=== PATIENT | female | born 1960 | race Caucasian/White ===

== ENCOUNTER 2021-04-02 14:59 | Emergency (ER) | payer BC ==
[2021-04-02 15:54] LABS: CHLORIDE,CL 103 mmol/L (98-107); SODIUM,NA 141 mmol/L (136-145)
[2021-04-02 16:27] VITALS: BP 132/78; PULSE 66
--- NOTE | 2021-04-02 18:58 | EDM.PDOC ---
ED HPI GENERAL MEDICAL PROBLEM - General Chief Complaint: General Stated Complaint: Anxiety Time Seen by Provider: 04/02/21 15:15 Source of Information: Reports: Patient History Limitations: Reports: No Limitations - History of Present Illness INITIAL COMMENTS - FREE TEXT/NARRATIVE: Pt. presents to ER with complaints of "panic attack". Pt. states that she has been under a great amount of stress recently, and states that she was told that she needs to provide a project for work on a short time schedule. Pt. states that after she was told, she had an episode of chest pain, lightheadedness and shortness of breath. Symptoms resolved on their own. Pt. denies any fever or chills. No history of CAD in the past. She has a history of diabetes, HTN, and hyperlipidemia. On exam in ER, pt. was symptom free, other than feeling anxious secondary to work stress. Onset: Today Onset Date: 04/02/21 Location: Reports: Chest, Generalized - Related Data Allergies Allergy/AdvReac Type Severity Reaction Status Date / Time Sulfa (Sulfonamide Allergy Hives Verified 04/02/21 15:01 Antibiotics) Home Meds: Home Meds Clopidogrel [Plavix] 75 mg PO DAILY 06/20/14 [History] Escitalopram Oxalate [Lexapro] 20 mg PO DAILY 06/20/14 [History] Estrogens, Conjugated [Premarin] 0.3 mg PO DAILY 06/20/14 [History] Levothyroxine Sodium [Synthroid] 100 mcg PO DAILY 06/20/14 [History] hydroCHLOROthiazide [Hydrochlorothiazide] 25 mg PO Q2D 06/20/14 [History] Naproxen Sodium [Aleve] 2 tab PO Q12H PRN 11/03/16 [History] Past Medical History HEENT History: Reports: Allergic Rhinitis, Impaired Vision, Other (See Below) Other HEENT History: 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 PACs. 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 Full term without complications during pregnancies or deliveries. Fibrocystic breast disease. Musculoskeletal History: Reports: Fracture, Osteoarthritis, Other (See Below) Other Musculoskeletal History: Left medial malleolar fracture on 09/17/15 Neurological History: Reports: Headaches, Chronic Psychiatric History: Reports: Anxiety, Depression Endocrine/Metabolic History: Reports: Hypokalemia, Hypomagnesemia, Hypothy roidism, Obesity/BMI 30+ Hematologic History: Reports: Anemia, Blood Transfusion(s), Other (See Below) Other Hematologic History: Blood transfusions in May 2003 secondary to hemorrhagic shock from dysfunctional uterine bleeding Dermatologic History: Reports: Chronic Cellulitis, Other (See Below) Other Dermatologic History: chronic recurrent cellulitis and carbuncle is with history of MRSA of the right breast as below - Infectious Disease History Infectious Disease History: Reports: Chicken Pox, MRSA - Past Surgical History HEENT Surgical History: Reports: Adenoidectomy, Tonsillectomy, Other (See Below) Other HEENT Surgeries/Procedures: Tonsillectomy and adenoidectomy at age 7. GI Surgical History: Reports: Colonoscopy, Other (See Below) Other GI Surgeries/Procedures: Colonoscopy on 06/12/2014. Female Surgical History: Reports: D&C, Hysterectomy, Salpingo-Oophorectomy, Other (See Below) Other Female Surgeries/Procedures: Complete hysterectomy on 05/25/2003 secondary to dysfunctional uterine bleeding. D&C on 05/18/2003 as work-up for her hypermenorrhea. Musculoskeletal Surgical History: Reports: ORIF, Other (See Below) Other Musculoskeletal Surgeries/Procedures:: ORIF of left ankle fracture in 2017. - Past Imaging History Past Imaging History: Reports: ISHA Screen (08/28/2015.), Cardiac Echo (Last on 02/05/2016 with previous evaluation on 08/28/2014 with both evaluations indicating an ejection fraction of 60-65%.), CAT Scan (Brain on 04/19/2014, 09/08/2008, and 01/06/2008. Left lower leg on 10/01/2015. Chest 11/18/2010. Abdomen and pelvis on 05/09/2003.), DEXA Scan, Holter Monitor (05/18/2019.), Mammogram (Last on 09/14/2020.), MRA (Neck on 01/10/2008), MRI (Left lower leg 09/17/2015. Left ankle 02/05/2011. Brain 01/10/2008.), Ultrasound (Left breast ultrasound on 12/15/2019 and 05/19/2019. Thyroid on 06/26/2009.), Venous Doppler (Left leg on 05/19/2008.) Social & Family History - Family History Cardiac: Reports: CAD, Heart Murmur, [place], Other (See Below) Other Cardiac Family History: Mother with valvular disorder at age 79. Paternal grandfather with fatal [place] at age 72 Musculoskeletal: Reports: Arthritis, Back pain, Chronic, Osteoarthritis, Other (See Below) Other Musculoskeletal Family History: Sister and paternal grandmother with severe scoliosis Neurological: Reports: Alzheimers Disease, Dementia, Other (See Below) Other Neurological Family History: Mother with possible beginning organic brain syndrome with history of OBS in maternal great grandmother, maternal aunts x2, and one maternal uncle. - Tobacco Use Tobacco Use Status *Q: Never Tobacco User - Caffeine Use Caffeine Use: Reports: Coffee, Soda - Alcohol Use Days Per Week of Alcohol Use: 7 Number of Drinks Per Day: 1 Total Drinks Per Week: 7 - Recreational Drug Use Recreational Drug Use: No - Living Situation & Occupation Living situation: Reports: (1977, 2 children), with Family () Occupation: Employed ED ROS GENERAL - Review of Systems Review Of Systems: See Below Constitutional: Reports: No Symptoms HEENT: Reports: No Symptoms Respiratory: Reports: Shortness of Breath (resolved) Cardiovascular: Reports: Chest Pain (resolved) Endocrine: Reports: No Symptoms GI/Abdominal: Reports: No Symptoms : Reports: No Symptoms Musculoskeletal: Reports: No Symptoms Skin: Reports: No Symptoms Neurological: Reports: No Symptoms Psychiatric: Reports: No Symptoms Hematologic/Lymphatic: Reports: No Symptoms Immunologic: Reports: No Symptoms ED EXAM, GENERAL - Physical Exam Exam: See Below Exam Limited By: No Limitations General Appearance: Alert, WD/WN, No Apparent Distress Throat/Mouth: Normal Inspection, Normal Lips, Normal Teeth, Normal Oropharynx, Normal Voice, No Airway Compromise Head: Atraumatic, Normocephalic Neck: Normal Inspection, Supple, Non-Tender, Full Range of Motion Respiratory/Chest: No Respiratory Distress, Lungs Clear, Normal Breath Sounds, No Accessory Muscle Use, Chest Non-Tender Cardiovascular: Normal Peripheral Pulses, Regular Rate, Rhythm, No JVD, No Murmur GI/Abdominal: Soft, Non-Tender, No Distention, No Mass (Female) Exam: Deferred Rectal (Female) Exam: Deferred Back Exam: Normal Inspection, Full Range of Motion Extremities: Normal Inspection, Normal Range of Motion, Non-Tender, No Pedal Edema, Normal Capillary Refill Neurological: Alert, Oriented, CN II-XII Intact, Normal Cognition, Normal Gait, Normal Reflexes, No Motor/Sensory Deficits Psychiatric: Normal Affect, Anxious Skin Exam: Warm, Dry, Intact, Normal Color, No Rash Lymphatic: No Adenopathy #1 Interpretation Rhythm: NSR H[place]: Normal P-Wave: Present QRS: Normal ST-T: Normal QT: Normal Course - Vital Signs Last Recorded V/S: Last Vital Signs Temp 37.1 C 04/02/21 15:05 Pulse 66 04/02/21 16:00 Resp 16 04/02/21 16:00 BP 132/78 04/02/21 16:00 Pulse Ox 99 04/02/21 16:00 - Orders/Labs/Meds Labs: Laboratory Tests 04/02/21 04/02/21 Range/Units 15:25 15:25 WBC 8.3 (4.0-10.2) K/uL RBC 4.49 (3.77-5.09) M/uL Hgb 12.3 (11.7-15.5) g/dL Hct 39.1 (34.0-46.0) % MCV 87.1 (84.0-98.0) fL MCH 27.4 L (28.2-33.3) pg MCHC 31.5 L (31.7-36.0) g/dL RDW 14.3 H (11.2-14.1) % Plt Count 271 (150-350) K/uL Neut % (Auto) 63.5 (45.0-80.0) % Lymph % (Auto) 28.3 (10.0-50.0) % [place] % (Auto) 6.7 (2.0-14.0) % Eos % (Auto) 1.3 (0.0-5.0) % Baso % (Auto) 0.2 (0.0-2.0) % Neut # (Auto) 5.25 (1.40-7.00) K/uL Lymph # (Auto) 2.34 (0.50-3.50) K/uL [place] # (Auto) 0.55 (0.00-1.00) K/uL Eos # (Auto) 0.11 (0.00-0.50) K/uL Baso # (Auto) 0.02 (0.00-0.20) K/uL Sodium 141 (136-145) mmol/L Potassium 3.8 (3.5-5.1) mmol/L Chloride 103 (98-107) mmol/L Carbon Dioxide 30.1 (21.0-32.0) mmol/L BUN 8 (7-18) mg/dL Creatinine 0.65 (0.51-1.17) mg/dL Est Cr Clr Drug Dosing 97.39 mL/min Estimated GFR (MDRD) > 60 mL/min Glucose 110 H (70-99) mg/dL Calcium 8.8 (8.5-10.1) mg/dL Troponin I 0.000 (0.000-0.056) ng/mL TSH, Ultra Sensitive 3.425 (0.358-3.740) mIU/mL Departure - Departure Time of Disposition: 16:35 Disposition: Home, Self-Care 01 Clinical Impression: Anxiety, Atypical chest pain - Discharge Information Instructions: Panic Attack, [id number], Managing Anxiety, Adult Referrals: Lisa Danielle NP [Primary Care Provider] - Forms: ED Department Discharge Additional Instructions: Home to rest. Off work tomorrow if needed. Return to ER/follow-up with PCP if symptoms worsen/redevelop. Call any time if you have questions. Sepsis Event Note (ED) - Evaluation Sepsis Screening Result: No Definite Risk - Focused Exam Vital Signs: Vital Signs Temp Pulse Resp BP Pulse Ox 04/02/21 16:00 66 16 132/78 99 04/02/21 15:28 68 12 139/86 99 04/02/21 15:05 37.1 C 84 14 180/97 H 99 - Assessment/Plan Plan: Home to rest. Off work tomorrow if needed. Return to ER/follow-up with PCP if symptoms worsen/redevelop. Call any time if you have questions.
== END 2021-04-02 16:14 | disposition home or self-care (01) ==
LOC: LL.ED 14:59
DX: F41.9 Anxiety disorder, unspecified (principal); E03.9 Hypothyroidism, unspecified; E66.9 Obesity, unspecified; J44.9 Chronic obstructive pulmonary disease, unspecified; I10 Essential (primary) hypertension; E78.00 Pure hypercholesterolemia, unspecified; Z79.899 Other long term (current) drug therapy; Z68.36 Body mass index [BMI] 36.0-36.9, adult
CPT/HCPCS: 36415; 80048; 84443; 84484; 85025; 93005; 99283-25

== ENCOUNTER 2021-09-28 20:05 | Emergency (ER) | payer BC ==
[2021-09-28 20:13] VITALS: PULSE 71
[2021-09-28 20:16] VITALS: BP 130/62
--- NOTE | 2021-09-28 20:39 | EDM.PDOC ---
ED HPI GENERAL MEDICAL PROBLEM - General Chief Complaint: ENT Problem Stated Complaint: tooth pain Time Seen by Provider: 09/28/21 20:15 Source of Information: Reports: Patient - History of Present Illness INITIAL COMMENTS - FREE TEXT/NARRATIVE: Patient presents to the ED for right upper dental pain. She has been struggling with a tooth for at least a month there. Scheduled for root canal inthe next couple of weeks . Yesterday she noted increased tenderness in this area, gum pain, and some right cheek swelling. Some referred ear pain. Has taken motrin for it, used Anbesol , has sensodyne toothpaste at home. Is on plavix. no fevers. Right upper dental pain Pain Score (Numeric/FACES): 9 - Related Data Allergies Allergy/AdvReac Type Severity Reaction Status Date / Time Sulfa (Sulfonamide Allergy Hives Verified 09/28/21 20:10 Antibiotics) Home Meds: Home Meds Clopidogrel [Plavix] 75 mg PO DAILY 06/20/14 [History] Escitalopram Oxalate [Lexapro] 20 mg PO DAILY 06/20/14 [History] Estrogens, Conjugated [Premarin] 0.3 mg PO DAILY 06/20/14 [History] Levothyroxine Sodium [Synthroid] 100 mcg PO DAILY 06/20/14 [History] hydroCHLOROthiazide [Hydrochlorothiazide] 25 mg PO Q2D 06/20/14 [History] Naproxen Sodium [Aleve] 2 tab PO Q12H PRN 11/03/16 [History] Clindamycin HCl 300 mg PO TID 8 Days #24 capsule 09/28/21 [Rx] Hydrocodone/Acetaminophen [HYDROcodone-Acetaminophen 5-325 MG] 1 each PO Q6HR PRN #14 tab 09/28/21 [Rx] Past Medical History HEENT History: Reports: Allergic Rhinitis, Impaired Vision, Other (See Below) Other HEENT History: 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 PACs. 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 Full term without complications during pregnancies or deliveries. Fibrocystic breast disease. Musculoskeletal History: Reports: Fracture, Osteoarthritis, Other (See Below) Other Musculoskeletal History: Left medial malleolar fracture on 09/17/15 Neurological History: Reports: Headaches, Chronic Psychiatric History: Reports: Anxiety, Depression Endocrine/Metabolic History: Reports: Hypokalemia, Hypomagnesemia, Hypothyroidism, Obesity/BMI 30+ Hematologic History: Reports: Anemia, Blood Transfusion(s), Other (See Below) Other Hematologic History: Blood transfusions in May 2003 secondary to hemorrhagic shock from dysfunctional uterine bleeding Dermatologic History: Reports: Chronic Cellulitis, Other (See Below) Other Dermatologic History: chronic recurrent cellulitis and carbuncle is with history of MRSA of the right breast as below - Infectious Disease History Infectious Disease History: Reports: Chicken Pox, MRSA - Past Surgical History HEENT Surgical History: Reports: Adenoidectomy, Tonsillectomy, Other (See Below) Other HEENT Surgeries/Procedures: Tonsillectomy and adenoidectomy at age 7. GI Surgical History: Reports: Colonoscopy, Other (See Below) Other GI Surgeries/Procedures: Colonoscopy on 06/12/2014. Female Surgical History: Reports: D&C, Hysterectomy, Salpingo-Oophorectomy, Other (See Below) Other Female Surgeries/Procedures: Complete hysterectomy on 05/25/2003 secondary to dysfunctional uterine bleeding. D&C on 05/18/2003 as work-up for her hypermenorrhea. Musculoskeletal Surgical History: Reports: ORIF, Other (See Below) Other Musculoskeletal Surgeries/Procedures:: ORIF of left ankle fracture in 2017. - Past Imaging History Past Imaging History: Reports: ISHA Screen (08/28/2015.), Cardiac Echo (Last on 02/05/2016 with previous evaluation on 08/28/2014 with both evaluations indicating an ejection fraction of 60-65%.), CAT Scan (Brain on 04/19/2014, 09/08/2008, and 01/06/2008. Left lower leg on 10/01/2015. Chest 11/18/2010. Abdomen and pelvis on 05/09/2003.), DEXA Scan, Holter Monitor (05/18/2019.), Mammogram (Last on 09/14/2020.), MRA (Neck on 01/10/2008), MRI (Left lower leg 09/17/2015. Left ankle 02/05/2011. Brain 01/10/2008.), Ultrasound (Left breast ultrasound on 12/15/2019 and 05/19/2019. Thyroid on 06/26/2009.), Venous Doppler (Left leg on 05/19/2008.) Social & Family History - Family History Cardiac: Reports: CAD, Heart Murmur, [place], Other (See Below) Other Cardiac Family History: Mother with valvular disorder at age 79. Paternal grandfather with fatal [place] at age 72 Musculoskeletal: Reports: Arthritis, Back pain, Chronic, Osteoarthritis, Other (See Below) Other Musculoskeletal Family History: Sister and paternal grandmother with severe scoliosis Neurological: Reports: Alzheimers Disease, Dementia, Other (See Below) Other Neurological Family History: Mother with possible beginning organic brain syndrome with history of OBS in maternal great grandmother, maternal aunts x2, and one maternal uncle. - Tobacco Use Tobacco Use Status *Q: Never Tobacco User - Caffeine Use Caffeine Use: Reports: Coffee, Soda - Living Situation & Occupation Living situation: Reports: (1977, 2 children), with Family () Occupation: Employed ED ROS ENT - Review of Systems Review Of Systems: See Below Constitutional: Reports: No Symptoms. Denies: Fever, Chills, Malaise, Weakness, Fatigue HEENT: Reports: Dental Pain (right upper), Ear Pain (right) Respiratory: Reports: No Symptoms. Denies: Shortness of Breath, Cough Cardiovascular: Reports: No Symptoms. Denies: Chest Pain, Dyspnea on Exertion Endocrine: Reports: No Symptoms GI/Abdominal: Reports: No Symptoms. Denies: Abdominal Pain, Diarrhea, Nausea, Vomiting : Reports: No Symptoms Musculoskeletal: Reports: No Symptoms Skin: Reports: No Symptoms Neurological: Reports: No Symptoms ED EXAM, ENT - Physical Exam Exam: See Below Exam Limited By: No Limitations General Appearance: Alert, WD/WN Eye Exam: Bilateral Eye: EOMI, Normal Inspection, PERRL Ears: Normal External Exam, Normal Canal, Hearing Grossly Normal, Normal TMs Nose: Normal Inspection Mouth/Throat: Normal Lips, Normal Oropharynx, Other (several root canals noted. no dental caries. right upper 2nd molar with minimal gingival swelling. soft tissue swelling in the right upper cheek. no drainage) Neck: Normal Inspection, Full Range of Motion. No: Lymphadenopathy (L), Lymphadenopathy (R) Respiratory/Chest: No Respiratory Distress, Lungs Clear, Chest Non-Tender Cardiovascular: Normal Peripheral Pulses, Regular Rate, Rhythm GI/Abdominal: Normal Bowel Sounds Course - Vital Signs Last Recorded V/S: Last Vital Signs Temp 36.2 C 09/28/21 20:05 Pulse 71 09/28/21 20:05 Resp 16 09/28/21 20:05 BP 130/62 09/28/21 20:16 Pulse Ox 98 09/28/21 20:05 - Re-Assessments/Exams Free Text/Narrative Re-Assessment/Exam: 09/28/21 20:42 will send her with a starter pack of [id number] mg tid and tramadol 1 every 6 prn. will write for hydrocodone when pharmacy open in two days. return for worsening swelling or fever. instructed to use sensodyne on it and to alyssa use tylenol, not NSAID due to plavix and encouraged a probiotic Departure - Departure Time of Disposition: 20:31 Disposition: Home, Self-Care 01 Condition: Good Clinical Impression: Dental infection - Discharge Information *PRESCRIPTION DRUG MONITORING PROGRAM REVIEWED*: Yes *COPY OF PRESCRIPTION DRUG MONITORING REPORT IN PATIENT TANISHA: No Prescriptions: Clindamycin HCl 300 mg PO TID 8 Days #24 capsule Hydrocodone/Acetaminophen [HYDROcodone-Acetaminophen 5-325 MG] 1 each PO Q6HR PRN #14 tab PRN Reason: Pain Instructions: Dental Pain, Cellulitis, Adult, [id number] Referrals: Lisa Danielle NP [Primary Care Provider] - Additional Instructions: You do not have a focal drainable abscess but there is soft tissue swelling ( cellulitis) of the cheek. Continue to use tylenol, gargles, and sensodyne toothpaste to the tooth. You are started on clindamycin 300 mg tid for 10 days. you will need a separate prescription for the full treatment. You are given tramadol to be taken one every 6 hours as needed for pain not relieved by tylenol. You are given a prescription for stronger pain medication that you can take if needed. Call your dentist but they will want you to have at least a weeks worth of antibiotics in before doing the root canal. return to the ED for increased facial swelling, fevers, difficulty swallowing. Sepsis Event Note (ED) - Evaluation Sepsis Screening Result: No Definite Risk - Focused Exam Vital Signs: Vital Signs Temp Pulse Resp BP Pulse Ox 09/28/21 20:16 130/62 09/28/21 20:05 36.2 C 71 16 163/83 H 98
== END 2021-09-28 20:55 | disposition home or self-care (01) ==
LOC: LL.ED 20:05
DX: K04.7 Periapical abscess without sinus (principal); I10 Essential (primary) hypertension; J44.9 Chronic obstructive pulmonary disease, unspecified; Z88.2 Allergy status to sulfonamides; Z79.02 Long term (current) use of antithrombotics/antiplatelets; Z79.899 Other long term (current) drug therapy
CPT/HCPCS: 99282

== ENCOUNTER 2023-11-05 08:17 | Day surgery (SDC) | payer BC ==
[2023-11-05] MEDS ORDERED: Sodium Chloride 0.9% 10 ML Syringe FLUSH PRN (08:30)
[2023-11-05] MEDS ORDERED: Propofol 200 MG/20 ML SDV ONE (08:37)
[2023-11-05] MEDS ORDERED: Midazolam 1 MG/ML 2 ML SDV ONE (08:37)
[2023-11-05] MEDS: Lactated Ringers 1,000 ML IV SCH (08:56)
[2023-11-05 10:29] VITALS: PULSE 57
[2023-11-05 10:49] VITALS: BP 124/75
== END 2023-11-05 11:10 | disposition home or self-care (01) ==
LOC: LL.SDS 08:17
PROVIDERS: ATTEND Surgery
DX: Z12.11 Encounter for screening for malignant neoplasm of colon (principal); D12.2 Benign neoplasm of ascending colon; D12.3 Benign neoplasm of transverse colon; I10 Essential (primary) hypertension; I63.10 Cerebral infarction due to embolism of unspecified precerebral artery; F41.1 Generalized anxiety disorder; F32.A Depression, unspecified; E78.5 Hyperlipidemia, unspecified; Z90.710 Acquired absence of both cervix and uterus; Z79.899 Other long term (current) drug therapy
CPT/HCPCS: 00812; 45385; J2250; J2704; J7120

== ENCOUNTER 2023-11-06 06:03 | Emergency (ER) | payer BC ==
[2023-11-06 06:21] VITALS: BP 161/81; PULSE 60
== END 2023-11-06 06:35 | disposition home or self-care (01) ==
LOC: LL.ED 06:03
DX: R68.84 Jaw pain (principal); K08.89 Other specified disorders of teeth and supporting structures; I10 Essential (primary) hypertension; J45.909 Unspecified asthma, uncomplicated; Z88.2 Allergy status to sulfonamides; Z79.899 Other long term (current) drug therapy; Z90.710 Acquired absence of both cervix and uterus
CPT/HCPCS: 99283; 99284